=== PATIENT | female | born 1955 | race Two or more races ===

== ENCOUNTER 2021-11-28 13:10 | Outpatient (CLI) | payer OTHER | END 2021-11-28 13:20 | disposition home or self-care (01) | LOC: RAD 13:10 | DX: M25.562 Pain in left knee (principal) ==

== ENCOUNTER 2022-01-28 11:10 | Emergency (ER) | payer OTHER ==
[~2022-01-28] VITALS: Ht 152.4 cm; Wt 83.9 kg
[2022-01-28] MEDS ORDERED: GLIPIZIDE XL10 MG PO (11:31)
[2022-01-28] MEDS ORDERED: SIMVASTATIN5 MG PO (11:31)
== END 2022-01-28 13:45 | disposition home or self-care (01) ==
LOC: ER 11:10
DX: M43.6 Torticollis (principal)

== ENCOUNTER 2022-02-06 10:11 | Outpatient (CLI) | payer OTHER ==
[~2022-02-06 10:11] MED LIST: GLIPIZIDE XL10 MG PO; SIMVASTATIN5 MG PO
== END 2022-02-06 10:18 | disposition home or self-care (01) ==
LOC: RAD 10:11
PROVIDERS: ATTEND Internal Medicine
DX: Z98.41 Cataract extraction status, right eye (principal); H25.011 Cortical age-related cataract, right eye

== ENCOUNTER → 2022-07-29 | Outpatient (CLI) | payer OTHER | END | disposition home or self-care (01) | LOC: RAD 09:17 | PROVIDERS: ATTEND Ophthalmology | DX: H25.011 Cortical age-related cataract, right eye (principal); Z98.41 Cataract extraction status, right eye ==